=== PATIENT | female | born 1940 | race Caucasian/White ===

== ENCOUNTER 2021-02-06 21:01 | Inpatient (IN) | payer MEDICARE, OTHER ==
[~2021-02-06] VITALS: Ht 170.2 cm; Wt 84.8 kg
[2021-02-07] MEDS ORDERED: ENTRESTO 97 MG1 EACH PO (07:30)
[2021-02-07] MEDS ORDERED: CLOPIDOGREL75 MG PO (07:30)
[2021-02-07] MEDS ORDERED: CARVEDILOL6.25 MG PO (07:34)
[2021-02-07] MEDS ORDERED: ATORVASTATIN CA40 MG PO (07:34)
[2021-02-07] MEDS ORDERED: FUROSEMIDE20 MG PO (07:34)
[2021-02-07] MEDS ORDERED: ADULT LOW DOSE81 MG PO (07:35)
[2021-02-07 10:10] LABS: RED BLOOD COUNT 3.99 M/UL (4.00-5.10); WHITE BLOOD COUNT 8.7 K/UL (4.5-11.0)
[2021-02-07 15:13] LABS: HEMOGLOBIN 11.6 gm/dl (12.3-15.3); RED BLOOD COUNT 3.86 M/UL (4.00-5.10); WHITE BLOOD COUNT 13.6 K/UL (4.5-11.0)
[2021-02-08 03:42] LABS: HEMOGLOBIN 9.4 gm/dl (12.3-15.3); RED BLOOD COUNT 3.14 M/UL (4.00-5.10)
[2021-02-08 18:33] LABS: BORDETELLA PARAPERTUSSIS Not Detected (Not Detectd); BORDETELLA PERTUSSIS Not Detected (Not Detectd); CHLAMYDIA PNEUMONIAE Not Detected (Not Detectd); CORONAVIRUS HKU1 Not Detected (Not Detectd); CORONAVIRUS NL63 Not Detected (Not Detectd); CORONAVIRUS OC43 Not Detected (Not Detectd); CORONOAVIRUS 229E Not Detected (Not Detectd); HUMAN METAPNEUMOVIRUS Not Detected (Not Detectd); HUMAN RHINOVIRUS/ENTEROVIRUS Not Detected (Not Detectd); INFLUENZA A Not Detected (Not Detectd); INFLUENZA B Not Detected (Not Detectd); MYCOPLASMA PNEUMONIAE Not Detected (Not Detectd); PARAINFLUENZA VIRUS 1 Not Detected (Not Detectd); PARAINFLUENZA VIRUS 2 Not Detected (Not Detectd); PARAINFLUENZA VIRUS 3 Not Detected (Not Detectd); PARAINFLUENZA VIRUS 4 Not Detected (Not Detectd); RESPIRATORY SYNCYTIAL VIRUS Not Detected (Not Detectd)
[2021-02-08 19:32] LABS: SARS-CoV-2 NOT DETECTED (Not Detectd)
[2021-02-09 03:13] LABS: WHITE BLOOD COUNT 7.2 K/UL (4.5-11.0)
[2021-02-09 03:17] LABS: HEMOGLOBIN 7.4 gm/dl (12.3-15.3); RED BLOOD COUNT 2.45 M/UL (4.00-5.10)
[2021-02-10 01:27] LABS: ACINETOBACTER BAUMANNII Not Detected (Negative); CANDIDA ALBICANS Not Detected (Negative); CANDIDA KRUSEI Not Detected (Negative); CANDIDA TROPICALIS Not Detected (Negative); ENTEROCOCCUS Not Detected (Negative); ESCHERICHIA COLI Not Detected (Negative); HAEMOPHILUS INFLUENZAE Not Detected (Negative); KLEBSIELLA OXYTOCA Not Detected (Negative); KLEBSIELLA PNEUMONIAE Not Detected (Negative); KPC-CARBAPENEM-RESISTANCE GENE Not Detected (Negative); PROTEUS Not Detected (Negative); PSEUDOMONAS AERUGINOSA Not Detected (Negative); SERRATIA MARCESANS Not Detected (Negative); STAPHYLOCOCCUS AUREUS Not Detected (Negative); STREP AGALACTIAE (GROUP B) Not Detected (Negative); STREP PYOGENES (GROUP A) Not Detected (Negative); STREPTOCOCCUS Not Detected (Negative); mecA (METHICILLIN RESIST GENE DETECTED (Negative); vanA/B (VANCOMYCIN RESIST GENE Not Detected (Negative)
[2021-02-10 01:29] LABS: STAPHYLOCOCCUS DETECTED (Negative)
[2021-02-10 02:47] LABS: HEMOGLOBIN 8.1 gm/dl (12.3-15.3); RED BLOOD COUNT 2.68 M/UL (4.00-5.10); WHITE BLOOD COUNT 7.7 K/UL (4.5-11.0)
--- NOTE | 2021-02-10 09:59 | NUR ---
PATIENT SLID TO FLOOR PER RADIOLOGY STAFF. NO S/S INJURY, NO COMPLAINT OF PAIN. WILL CONTINUE TO MONITOR
[2021-02-11 02:37] LABS: HEMOGLOBIN 7.7 gm/dl (12.3-15.3); RED BLOOD COUNT 2.52 M/UL (4.00-5.10); WHITE BLOOD COUNT 7.4 K/UL (4.5-11.0)
[2021-02-12 04:09] LABS: HEMOGLOBIN 7.2 gm/dl (12.3-15.3); RED BLOOD COUNT 2.37 M/UL (4.00-5.10); WHITE BLOOD COUNT 7.3 K/UL (4.5-11.0)
--- NOTE | 2021-02-12 19:05 | NUR ---
REPORT CALLED TO MEKA LARA ON 626. NO QUESTIONS OR CONCERNS AT THIS TIME.
[2021-02-13 06:57] LABS: RED BLOOD COUNT 2.19 M/UL (4.00-5.10); WHITE BLOOD COUNT 7.4 K/UL (4.5-11.0)
[2021-02-13 07:06] LABS: HEMOGLOBIN 6.5 gm/dl (12.3-15.3)
[2021-02-13 22:03] LABS: HEMOGLOBIN 10.2 gm/dl (12.3-15.3)
[2021-02-14 05:37] LABS: HEMOGLOBIN 9.8 gm/dl (12.3-15.3); RED BLOOD COUNT 3.37 M/UL (4.00-5.10); WHITE BLOOD COUNT 8.7 K/UL (4.5-11.0)
[2021-02-15 04:21] LABS: HEMOGLOBIN 9.8 gm/dl (12.3-15.3); RED BLOOD COUNT 3.34 M/UL (4.00-5.10); WHITE BLOOD COUNT 8.7 K/UL (4.5-11.0)
[2021-02-15] MEDS ORDERED: ELIQUIS 2.5 MG2.5 MG GT (09:41)
[2021-02-15] MEDS ORDERED: LEVOFLOXACIN750 MG PO (09:54)
== END 2021-02-15 01:55 | DRG 522 ==
LOC: M/S 21:01 → PROG CARE 21:01 → M/S 02-12 19:25
PROVIDERS: Internal Medicine; Orthopaedic Surgery; ADMIT Internal Medicine
PROC: B24BZZZ Ultrasonography of Heart with Aorta (ICD-10-PCS; 2021-02-07)
PROC: 0SRS0JA Replacement of Left Hip Joint, Femoral Surface with Synthetic Substitute, Uncemented, Open Approach (ICD-10-PCS; principal; 2021-02-07 12:26)
PROC: 30233N1 Transfusion of Nonautologous Red Blood Cells into Peripheral Vein, Percutaneous Approach (ICD-10-PCS; 2021-02-13)
DX: S72.002A Fracture of unspecified part of neck of left femur, initial encounter for closed fracture (principal); D62 Acute posthemorrhagic anemia; R78.81 Bacteremia; J96.11 Chronic respiratory failure with hypoxia; I42.9 Cardiomyopathy, unspecified; I13.0 Hypertensive heart and chronic kidney disease with heart failure and stage 1 through stage 4 chronic kidney disease, or unspecified chronic kidney disease; R04.2 Hemoptysis; Z20.822 Contact with and (suspected) exposure to COVID-19; E86.0 Dehydration; E55.9 Vitamin D deficiency, unspecified; N18.9 Chronic kidney disease, unspecified; I95.1 Orthostatic hypotension; I50.9 Heart failure, unspecified; F17.210 Nicotine dependence, cigarettes, uncomplicated; G47.33 Obstructive sleep apnea (adult) (pediatric); Z96.642 Presence of left artificial hip joint; E78.5 Hyperlipidemia, unspecified; E11.22 Type 2 diabetes mellitus with diabetic chronic kidney disease; D63.1 Anemia in chronic kidney disease; E11.51 Type 2 diabetes mellitus with diabetic peripheral angiopathy without gangrene; W18.30XA Fall on same level, unspecified, initial encounter; K59.00 Constipation, unspecified; J44.9 Chronic obstructive pulmonary disease, unspecified; Z95.828 Presence of other vascular implants and grafts; Z79.01 Long term (current) use of anticoagulants; Z79.82 Long term (current) use of aspirin; Z90.710 Acquired absence of both cervix and uterus; Z82.49 Family history of ischemic heart disease and other diseases of the circulatory system; Z99.81 Dependence on supplemental oxygen; Z79.4 Long term (current) use of insulin; Z99.3 Dependence on wheelchair
CPT/HCPCS: ECHO; 36415; 36600; 70450; 71045; 72100; 72170; 73552; 73700; 80048; 80053; 80202; 80307; 81001; 82140; 82550; 82553; 82607; 82746; 82803; 83605; 83735; 84100; 84300; 84439; 84443; 84484; 84550; 85014; 85018; 85025; 85027; 85610; 86850; 86900; 86901; 86920; 87040; 87077; 87150; 87186; 87633; 93005; 93306; 94640; 94664; 94760; 97110; 97110-GP-CQ; 97116-GP-CQ; 97161; 97166; 97530; 97530-GP-CQ; 97535; C1776; J0690; J1100; J1335; J1650; J2001; J2250; J2270; J2370; J2405; J2710; J2765; J2795; J3010; J3370; J7030; J7040; J7050; J7070; J7120; P9016; U0002

== ENCOUNTER → 2021-03-29 | Outpatient (CLI) | payer MEDICARE, OTHER ==
[~2021-03-29] MED LIST: ADULT LOW DOSE81 MG PO; ATORVASTATIN CA40 MG PO; CARVEDILOL6.25 MG PO; CLOPIDOGREL75 MG PO; ELIQUIS 2.5 MG2.5 MG GT; ENTRESTO 97 MG1 EACH PO; FUROSEMIDE20 MG PO; LEVOFLOXACIN750 MG PO
== END ==
LOC: HEART 5 15:31
DX: J44.9 Chronic obstructive pulmonary disease, unspecified (principal)
CPT/HCPCS: 94060; 94729